=== PATIENT | female | born 1940 | race Caucasian/White ===

== ENCOUNTER 2024-04-22 11:12 | Emergency (ER) | payer MEDICARE ==
[~2024-04-22] VITALS: Ht 160 cm; Wt 104.3 kg
[2024-04-22 11:17] VITALS: BP_SYST 168; PULSE 72; RESP 15; TEMP 97.2; O2SAT 95
[2024-04-22 12:38] LABS: BASOPHILS % (AUTO) 0.9 % (0.0-2.0); EOSINOPHILS # (AUTO) 0.1 K/uL (0.0-0.4); EOSINOPHILS % (AUTO) 1.3 % (0.0-4.0); HEMATOCRIT 42.9 % (36-48); HEMOGLOBIN 14.3 g/dL (12.0-16.0); LYMPHOCYTES # (AUTO) 1.3 K/uL (1.0-5.5); LYMPHOCYTES % (AUTO) 24.3 % (20.5-51.5); MEAN CORPUSCULAR HEMOGLOBIN 32 pg (27-31); MEAN CORPUSCULAR HGB CONC 33 % (32-36); MEAN CORPUSCULAR VOLUME 95 fL (79.0-98.0); MONOCYTES # (AUTO) 0.8 K/uL (0.0-1.0); MONOCYTES % (AUTO) 14.6 % (1.7-9.3); NEUTROPHILS # (AUTO) 3.1 K/uL (1.8-7.7); NEUTROPHILS % (AUTO) 58.9 % (40.0-70.0); PLATELET COUNT (AUTO) 202 K/uL (130-430); RED BLOOD CELL COUNT(AUTO) 4.51 MIL/uL (4.2-6.2); RED CELL DISTRIBUTION WIDTH 13.5 % (9.0-15.0); WHITE BLOOD COUNT (AUTO) 5.2 K/uL (4.8-10.8)
[2024-04-22 13:00] LABS: ALANINE AMINOTRANSFERASE 62 U/L (12-78); ALBUMIN 3.7 g/dL (3.4-4.8); ANION GAP 7 (5-15); ASPARTATE AMINOTRANSFERASE 56 U/L (10-37); BILIRUBIN,DIRECT 0.2 mg/dL (0.0-0.3); CALCIUM 9.8 mg/dL (8.4-11.0); CARBON DIOXIDE 32 mmol/L (23-29); CHLORIDE 98 mmol/L (98-107); CREATINE KINASE, TOTAL 53 U/L (26-192); CREATININE 1.07 mg/dL (0.55-1.30); GLUCOSE 131 mg/dL (74-106); POTASSIUM 4.6 mmol/L (3.5-5.1); SODIUM SERUM 137 mmol/L (136-145); TOTAL BILIRUBIN 0.5 mg/dL (0.0-1.0); TOTAL PROTEIN, SERUM 7.6 g/dL (6.4-8.3); UREA NITROGEN, BLOOD 16 mg/dL (8-21)
[2024-04-22 13:18] LABS: PROTHROMBIN TIME 10.6 SECS (9.5-12.5)
[2024-04-22 13:34] LABS: ACETONE, SERUM NEGATIVE (NEGATIVE)
[2024-04-22] MEDS ORDERED: NIRM1TAB7 PO (13:51)
[2024-04-22] MEDS ORDERED: ONDA-8 TL (13:51)
[2024-04-22] MEDS: NACL 0.9% 1,000 ML IV ONE (14:13)
[2024-04-22 15:09] VITALS: BP_SYST 168; PULSE 72; RESP 15; TEMP 97.2; O2SAT 95
== END 2024-04-22 15:07 | disposition home or self-care (01) ==
LOC: SED 11:12
DX: U07.1 COVID-19 (principal); R19.7 Diarrhea, unspecified; R53.83 Other fatigue; I10 Essential (primary) hypertension
CPT/HCPCS: 99285; 96360; 71045; 80076; 80048; 82009; 82550; 85025; 85610; 85730; 84484; 36415; 93005; 83605; J7030

== ENCOUNTER 2024-04-26 09:23 | Emergency (ER) | payer MEDICARE ==
[~2024-04-26] VITALS: Ht 165.1 cm; Wt 104.3 kg
[~2024-04-26 09:23] MED LIST: NIRM1TAB7 PO; ONDA-8 TL
[2024-04-26 09:35] VITALS: BP_SYST 180; PULSE 102; RESP 20; TEMP 98.9; O2SAT 96
[2024-04-26] MEDS: IPRATROPIUM/ALBUTEROL SULFATE 3 ML AMPUL.NEB (DUONEB) INH ONE (09:45)
[2024-04-26 09:59] LABS: BASOPHILS % (AUTO) 0.4 % (0.0-2.0); EOSINOPHILS # (AUTO) 0.1 K/uL (0.0-0.4); EOSINOPHILS % (AUTO) 1.8 % (0.0-4.0); HEMATOCRIT 42.2 % (36-48); HEMOGLOBIN 14.1 g/dL (12.0-16.0); LYMPHOCYTES # (AUTO) 1.9 K/uL (1.0-5.5); LYMPHOCYTES % (AUTO) 28.6 % (20.5-51.5); MEAN CORPUSCULAR HEMOGLOBIN 32 pg (27-31); MEAN CORPUSCULAR HGB CONC 33 % (32-36); MEAN CORPUSCULAR VOLUME 95 fL (79.0-98.0); MONOCYTES # (AUTO) 0.6 K/uL (0.0-1.0); MONOCYTES % (AUTO) 9.7 % (1.7-9.3); NEUTROPHILS # (AUTO) 3.9 K/uL (1.8-7.7); NEUTROPHILS % (AUTO) 59.5 % (40.0-70.0); PLATELET COUNT (AUTO) 231 K/uL (130-430); RED BLOOD CELL COUNT(AUTO) 4.44 MIL/uL (4.2-6.2); RED CELL DISTRIBUTION WIDTH 13.5 % (9.0-15.0); WHITE BLOOD COUNT (AUTO) 6.6 K/uL (4.8-10.8)
[2024-04-26 10:08] LABS: ABG O2 SAT% ESTIMATE 98.4 % (94.0-100.0)
[2024-04-26] MEDS: methylPREDNISolone SOD SUCC/PF 62.5 MG/ML VIAL IVP ONE (10:12)
[2024-04-26 10:15] LABS: ANION GAP 12 (5-15); CALCIUM 10.1 mg/dL (8.4-11.0); CARBON DIOXIDE 23 mmol/L (23-29); CHLORIDE 102 mmol/L (98-107); CREATININE 1.14 mg/dL (0.55-1.30); GLUCOSE 128 mg/dL (74-106); POTASSIUM 4.2 mmol/L (3.5-5.1); SODIUM SERUM 137 mmol/L (136-145); UREA NITROGEN, BLOOD 18 mg/dL (8-21)
[2024-04-26 10:16] LABS: BLOOD GAS HCO3 20.7 mmol/L (21.0-27.0); BLOOD GAS PCO2 25.6 mmHg (35.0-45.0); BLOOD GAS PH 7.526 (7.350-7.450); BLOOD GAS PO2 105.6 mmHg (75.0-100.0)
[2024-04-26 10:17] LABS: ALLEN'S TEST POSITIVE (P)
[2024-04-26] MEDS ORDERED: ALBMDI INH (11:30)
[2024-04-26] MEDS ORDERED: PRED20TA PO (11:30)
[2024-04-26 12:14] VITALS: BP_SYST 158; PULSE 73; RESP 18; TEMP 97.6; O2SAT 99
== END 2024-04-26 12:14 | disposition home or self-care (01) ==
LOC: SED 09:23
DX: U07.1 COVID-19 (principal); J45.909 Unspecified asthma, uncomplicated; I10 Essential (primary) hypertension; Z79.899 Other long term (current) drug therapy; Z79.2 Long term (current) use of antibiotics
CPT/HCPCS: 36415; 36600; 71045; 80048; 82803; 83880; 84484; 85025; 93005; 94640; 96374; 99285; J2930